=== PATIENT | male | born 1945 | race Caucasian/White ===

== ENCOUNTER 2019-11-29 07:24 | Day surgery (SDC) | payer OTHER ==
[~2019-11-29] VITALS: Ht 172.7 cm; Wt 81.0 kg
[~2019-11-29 07:24] MED LIST: UNK BP MED
[2019-11-29] MEDS ORDERED: ATEN50 PO (07:58)
[2019-11-29] MEDS ORDERED: ALLO300 PO (07:58)
[2019-11-29] MEDS ORDERED: ATOR20 PO (07:59)
[2019-11-29] MEDS ORDERED: LOSA50 PO (08:03)
[2019-11-29] MEDS ORDERED: TAMS.4ER PO (08:04)
[2019-11-29] MEDS ORDERED: CENTRUM SILVER1 EAC2 PO (08:04)
[2019-11-29] MEDS ORDERED: CALCITRATE200 MG PO (08:04)
[2019-11-29] MEDS ORDERED: ASPI81CH PO (08:04)
--- NOTE | 2019-11-29 09:55 | NUR ---
PT UP TO RESTROOM AND BACK WITHOUT DIFF. VSS. NADN. DENIES PAIN OR NEEDS. PT WITH R BRACHIAL SITE AND R RADIAL TR BAND IN PLACE. NO BLEEDING OR HEMATOMA NOTED. PT AND S/O UPDATED ON TREATMENT STATUS. PT PENDING TRANSFER TO [facility] IN [facility]. CALL LIGHT WITHIN REACH.
--- NOTE | 2019-11-29 10:00 | NUR ---
DR WALDRON TO ROOM DISCUSSING PLAN OF CARE. VSS. COTTER.
--- NOTE | 2019-11-29 11:53 | NUR ---
PT UP TO RESTROOM, STEADY GAIT. TR BAND REMAINS ON RIGHT WRIST. SITE APPEARS STABLE, SOFT NON TENDER WITH NO ACTIVE BLEEDING, OOZING, OR PAIN NOTED. UNMEASURED VOID. WILL CONTINUE TO MONITOR.
--- NOTE | 2019-11-29 12:30 | NUR ---
PER DR CHIVO TANNER FOR PATIENT TO EAT AND DRINK AT THIS TIME. FOOD TRAY ORDERS. VSS. SHELBYN.
--- NOTE | 2019-11-29 12:36 | NUR ---
PT TR BAND FULLY DEFLATED. NO BLEEDING OR HEMATOMA NOTED. VSS. NADN. PT DENIES PAIN OR NEEDS. CALL LIGHT WITHIN REACH. FAMILY AT BEDSIDE.
--- NOTE | 2019-11-29 13:09 | NUR ---
PT AND S/O VERBALIZES UNDERSTANDING WRITTEN AND VERBAL ORDERS. PT DENIES QUESITONS. PT AND FAMILY UPDATED ON TREATMENT STATUS. AWAITING TRANSFER
--- NOTE | 2019-11-29 15:12 | NUR ---
PT ASSISTED WTIH DRESSING SELF. TOLERATES WELL. VSS. R FEM VEIN ACCESS REMAINS CLEAR. NO BLEEDING, SOFT AND NON-TENDER. PT AND S/O VERBALIZES UNDERSTANDING WRITTEN AND VERBAL ORDERS. DENIES QUESTIONS. PT IV DC'D. CATH INTACT. PRESSURE DSG APPLIED. [facility] AND FAMILY.
--- NOTE | 2019-11-29 15:13 | NUR ---
REPORT CALLED TO LELIA MILLS WITH [facility]. DENIES QUESTIONS OR CONCERNS.
--- NOTE | 2019-11-29 15:55 | NUR ---
PT AMBULATES IN ROOM WITHOUT DIFF. PT TO RESTROOM AND BACK. VSS. NADN. R RADIAL SITE CLEAR. CALL LIGHT WITHIN REACH. ACCEPTING DR FOR [facility] TRANSFER UNIT TO CALL WITH ROOM ASSIGNMENT.
--- NOTE | 2019-11-29 16:28 | NUR ---
[facility]/ CARDIOLOGY B UNIT TO CALL BACK WITH ROOM NUMBER. [facility] NOTIFIED FOR TRANSPORT.
--- NOTE | 2019-11-29 17:07 | NUR ---
[facility] PERSONNEL HERE FOR TRANSPORT. VSS. COTTER. PT AMBULATES TO RESTROOM AND BACK WITHOUT DIFF. [place] TRANSFERR[place] TO [facility]. SITES REMAIN CLEAR ON R RADIAL AND R BRACHIAL. FULL REPORT CALLED TO LELIA MASON TO ASSUME CARE OF PT WITH [facility]. PT TO ROOM CARDIOLOGY B UNIT RM [phone]. .
== END 2019-11-29 17:10 | disposition short-term general hospital (02) ==
LOC: MHTC 07:24
PROC: B206YZZ Plain Radiography of Right and Left Heart using Other Contrast (ICD-10-PCS; principal; 2019-11-29)
PROC: B201YZZ Plain Radiography of Multiple Coronary Arteries using Other Contrast (ICD-10-PCS; principal; 2019-11-29)
PROC: 4A023N8 Measurement of Cardiac Sampling and Pressure, Bilateral, Percutaneous Approach (ICD-10-PCS; principal; 2019-11-29)
DX: I34.0 Nonrheumatic mitral (valve) insufficiency (principal); I25.10 Atherosclerotic heart disease of native coronary artery without angina pectoris; I10 Essential (primary) hypertension; E78.5 Hyperlipidemia, unspecified; Z79.82 Long term (current) use of aspirin; Z79.899 Other long term (current) drug therapy; Z87.891 Personal history of nicotine dependence; Z88.0 Allergy status to penicillin; Z88.8 Allergy status to other drugs, medicaments and biological substances; Z88.6 Allergy status to analgesic agent
CPT/HCPCS: 93460; C1769; C1894; J1644; J2250; J3010; J7030; J7040; Q9967

== ENCOUNTER 2020-11-12 05:58 | Day surgery (SDC) | payer OTHER ==
[~2020-11-12] VITALS: Ht 172.7 cm; Wt 79.0 kg
[~2020-11-12 05:58] MED LIST changes: +ACET500 PO; +ALLO300 PO; +ATEN50 PO; +ATOR20 PO; +Aspirin EC81 MG PO; +CALCITRATE200 MG PO; +CENTRUM SILVER1 EAC2 PO; +FURO40 PO; +LOSA50 PO; +METO25ER PO; +POTCHL20ER PO; +TAMS.4ER PO
[2020-11-12] MEDS ORDERED: XARELTO20 MG PO (07:01)
[2020-11-12] MEDS ORDERED: AMLO5 PO (07:02)
--- NOTE | 2020-11-12 08:46 | NUR ---
PT VERBALIZED UNDERSTANDING OF WRITTEN AND VERBAL D/C INST. SB 50BPM. IV REMOVED. PT TAKEN OUT OF THE [facility]RT [facility]ENTER VIA W/C. TAKING PO FLUIDS /S DIFFICULTY.
== END 2020-11-12 22:48 | disposition home or self-care (01) ==
LOC: MHTC 05:58
DX: I48.3 Typical atrial flutter (principal); I48.91 Unspecified atrial fibrillation; I34.0 Nonrheumatic mitral (valve) insufficiency; I11.0 Hypertensive heart disease with heart failure; I50.811 Acute right heart failure; I25.10 Atherosclerotic heart disease of native coronary artery without angina pectoris; E78.5 Hyperlipidemia, unspecified; Z79.01 Long term (current) use of anticoagulants; Z88.0 Allergy status to penicillin; Z88.8 Allergy status to other drugs, medicaments and biological substances; Z95.1 Presence of aortocoronary bypass graft
CPT/HCPCS: 92960; 93005; 93010; 93312; 93325; A9270; J2405; J2704; J7030

== ENCOUNTER 2022-06-16 23:28 | Emergency (ER) | payer OTHER ==
[~2022-06-16] VITALS: Ht 172.7 cm; Wt 77.1 kg
[~2022-06-16 23:28] MED LIST changes: +AMLO5 PO; +XARELTO20 MG PO
[2022-06-17] MEDS ORDERED: LEVO750 PO (02:43)
== END 2022-06-17 03:20 | disposition home or self-care (01) ==
LOC: ER 23:28
DX: R04.0 Epistaxis (principal); T45.515A Adverse effect of anticoagulants, initial encounter; I25.10 Atherosclerotic heart disease of native coronary artery without angina pectoris; I10 Essential (primary) hypertension; E78.5 Hyperlipidemia, unspecified; Z79.01 Long term (current) use of anticoagulants; Z88.8 Allergy status to other drugs, medicaments and biological substances; Z88.0 Allergy status to penicillin; Z79.899 Other long term (current) drug therapy; Z95.1 Presence of aortocoronary bypass graft; Z87.891 Personal history of nicotine dependence
CPT/HCPCS: 30903; 96374; 99283-25; A9270; J2270

== ENCOUNTER 2022-06-18 00:27 | Emergency (ER) | payer OTHER ==
[~2022-06-18] VITALS: Ht 172.7 cm; Wt 77.1 kg
[~2022-06-18 00:27] MED LIST changes: +LEVO750 PO
== END 2022-06-18 05:00 | disposition home or self-care (01) ==
LOC: ER 00:27
DX: Z46.89 Encounter for fitting and adjustment of other specified devices (principal); Z87.891 Personal history of nicotine dependence
CPT/HCPCS: 99282

== ENCOUNTER 2022-06-19 10:03 | Emergency (ER) | payer OTHER ==
[~2022-06-19] VITALS: Ht 172.7 cm; Wt 77.1 kg
== END 2022-06-19 10:19 | disposition home or self-care (01) ==
LOC: ER 10:03
DX: Z45.89 Encounter for adjustment and management of other implanted devices (principal); I25.10 Atherosclerotic heart disease of native coronary artery without angina pectoris; N40.0 Benign prostatic hyperplasia without lower urinary tract symptoms; I10 Essential (primary) hypertension; E78.5 Hyperlipidemia, unspecified; Z88.0 Allergy status to penicillin; Z88.8 Allergy status to other drugs, medicaments and biological substances; Z79.899 Other long term (current) drug therapy; Z79.01 Long term (current) use of anticoagulants; Z95.1 Presence of aortocoronary bypass graft; Z95.2 Presence of prosthetic heart valve; Z87.891 Personal history of nicotine dependence
CPT/HCPCS: 99282

== ENCOUNTER 2024-03-27 19:57 | Emergency (ER) | payer OTHER ==
[~2024-03-27] VITALS: Ht 172.7 cm; Wt 74.8 kg
[2024-03-27 20:01] VITALS: BP 163/51
[2024-03-27 20:24] LABS: BASOPHILS ABSOLUTE AUTO 0.02 K/mm3 (0.00-0.23); BASOPHILS PERCENT AUTO 0 % (0-2); EOSINOPHILS ABSOLUTE AUTO 0.04 K/mm3 (0.00-0.68); EOSINOPHILS PERCENT AUTO 1 % (0-6); Hematocrit 38.9 % (37.0-53.0); Hemoglobin 13.2 g/dL (13.5-17.5); IMMATURE GRAN ABSOLUTE AUTO 0.02 K/mm3 (0.00-0.10); IMMATURE GRAN PERCENT AUTO 0 % (0-1); LYMPHOCYTES ABSOLUTE AUTO 0.82 K/mm3 (0.84-5.20); LYMPHOCYTES PERCENT AUTO 11 % (21-46); MONOCYTES ABSOLUTE AUTO 0.92 K/mm3 (0.16-1.47); MONOCYTES PERCENT AUTO 12 % (4-13); Mean Corpuscular HGB 31.4 pg (26.0-34.0); Mean Corpuscular HGB Conc 33.9 g/dL (31.5-36.5); Mean Corpuscular Volume 93 fL (80-100); Mean Platelet Volume 11.8 fL (9.1-12.4); NEUTROPHILS ABSOLUTE AUTO 5.81 K/mm3 (1.96-9.15); NEUTROPHILS PERCENT AUTO 76 % (41-73); Platelet Count 147 K/mm3 (150-400); RDW Coefficient Variation 14.1 % (11.7-14.2); RDW Standard Deviation 47.8 fL (35.1-46.3); White Blood Cell Count 7.63 K/mm3 (4.00-11.30)
[2024-03-27 20:44] LABS: Albumin, Blood 3.5 g/dL (3.4-5.0); Albumin/Globulin Ratio 0.9 (0.8-1.8); Bilirubin, Total 1.5 mg/dL (0.1-1.0); Bun/Creatinine Ratio 18.6 (12.0-20.0); Calcium, Blood 8.6 mg/dL (8.5-10.1); Creatinine, Blood 1.18 mg/dL (0.60-1.20); Globulin, Blood 4.1 g/dL (2.2-4.0); Potassium, Blood 3.8 mmol/L (3.5-5.5); Total Protein, Blood 7.6 g/dL (6.4-8.2)
[2024-03-27] MEDS ORDERED: Ibuprofen 600 MG Tab PO ONE (22:40)
[2024-03-28 00:02] LABS: Influenza A, PCR NEGATIVE (NEGATIVE); Influenza B, PCR NEGATIVE (NEGATIVE); Resp Syncytial Virus, PCR NEGATIVE (NEGATIVE); SARS-Cov-2 (COVID-19) PCR, MMC NEGATIVE (NEGATIVE)
== END 2024-03-28 00:09 | disposition home or self-care (01) ==
LOC: ER 19:57
PROVIDERS: Physician Assistant; Student in an Organized Health Care Education/Training Program
DX: B34.9 Viral infection, unspecified (principal); I10 Essential (primary) hypertension; E78.5 Hyperlipidemia, unspecified; Z87.891 Personal history of nicotine dependence; Z79.899 Other long term (current) drug therapy; Z88.0 Allergy status to penicillin; Z88.1 Allergy status to other antibiotic agents; Z88.8 Allergy status to other drugs, medicaments and biological substances
CPT/HCPCS: 0241U; 70450; 71046; 80053; 82947; 85025; 93005; 93010; 99284-25; A9270

== ENCOUNTER 2025-02-22 12:28 | Day surgery (SDC) | payer OTHER ==
[~2025-02-22] VITALS: Ht 172.7 cm; Wt 73.1 kg
[~2025-02-22 12:28] MED LIST changes: +NS 500 ML IV ONE
[2025-02-22] MEDS ORDERED: CeFAZolin Sodium 2,000 MG VIAL ONE (12:54)
[2025-02-22] MEDS ORDERED: ELIQUIS5 M2 PO (13:09)
[2025-02-22] MEDS ORDERED: Bupivacaine 0.5% W/EPI 1:200000 SDV 30 ML Vial ONE (13:11)
[2025-02-22] MEDS ORDERED: LEVOTHYROXINE75 MC9 PO (13:23)
[2025-02-22] MEDS ORDERED: Lactated Ringer's 1,000 ML IV ONE (13:27)
--- NOTE | 2025-02-22 13:32 | NUR ---
02/22/25 1332 LAURIE NELSON RESTING ON GURNEY, RAILS UP, BRAKES LOCKED, CALL LIGHT IN REACH. PT DENIES NEEDS AT THIS TIME.
[2025-02-22] MEDS ORDERED: FentaNYL Citrate 50 MCG/ML 2 ML Injection ONE (13:52)
[2025-02-22] MEDS ORDERED: propofoL 20 ML IV ONE (13:52)
[2025-02-22] MEDS ORDERED: Ondansetron HCl 2 MG / ML 2ML Vial ONE (14:05)
[2025-02-22] MEDS ORDERED: Dexamethasone Sod Phos 10 MG/ML 1ML VIAL ONE (14:05)
[2025-02-22] MEDS ORDERED: Glycopyrrolate 0.2 MG/ML 5ML VIAL ONE (14:05)
[2025-02-22 15:24] VITALS: BP 159/92
--- NOTE | 2025-02-22 15:33 | NUR ---
02/22/25 1533 BALBIR LUCAS PT IN AT BEDSIDE. PT ALERT AND TALKING. PT IS TO BE NON-WT BEARING ACCORDING TO DC INSTRUCTIONS. PT ATTEMPTED TO USE HAND TO ASSIST WITH PUSHING UP AND LOWERING INTO CHAIR. GIVING PT SLING TO KEEP HIM FROM PUTTING PRESSURE AND LIFTING/WT BEARING.
== END 2025-02-22 16:00 | disposition home or self-care (01) ==
LOC: ORSCSDS 12:28
PROVIDERS: Orthopaedic Surgery
PROC: 0RBN0ZZ Excision of Right Wrist Joint, Open Approach (ICD-10-PCS; principal; 2025-02-22 14:30)
DX: M67.431 Ganglion, right wrist (principal); I10 Essential (primary) hypertension; E78.5 Hyperlipidemia, unspecified; J44.9 Chronic obstructive pulmonary disease, unspecified; Z87.891 Personal history of nicotine dependence; E03.9 Hypothyroidism, unspecified; Z79.01 Long term (current) use of anticoagulants; Z95.0 Presence of cardiac pacemaker
CPT/HCPCS: J0690; J1100; J2405; J2704; J3010; J7040